=== PATIENT | female | born 1950 | race Caucasian/White ===

== ENCOUNTER → 2017-02-28 | Outpatient (CLI) | payer MEDICARE, OTHER ==
[~2017-02-28] MED LIST: ADVIL200 MG PO; BIOTIN2500 MCG PO; CITRACAL-VIT D1 EACH PO; EVISTA60 MG PO; FOLGARD TABLET1 EACH PO; FOLTX TABLET1 EACH PO; NEXIUM40 MG PO; NORCO 5-325 MG1 TAB PO; PREVALITE (=4 GM/PKT PO; THERAGRAN-M1 TAB PO; VITAMIN C500 MG/15 PO
== END | disposition disaster alternative care site (69) ==
LOC: GBCOE 02-26 10:00
DX: Z13.820 Encounter for screening for osteoporosis (principal); M85.89 Other specified disorders of bone density and structure, multiple sites; Z78.0 Asymptomatic menopausal state